=== PATIENT | male | born 1995 | race Caucasian/White ===

== ENCOUNTER 2017-03-09 08:21 | Emergency (ER) | payer BC, OTHER ==
[2017-03-09 08:31] VITALS: BP 136/66; PULSE 76; TEMP 98; BMI 25.7
[2017-03-09] MEDS ORDERED: ACETAMINOPHEN 500 MG TABLET (FP) PO ONE (08:52)
[2017-03-09] MEDS ORDERED: ACETAMINOPHEN 500 MG TABLET (FP) ONE (09:02)
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
[2017-03-09 09:20] LABS: URINE APPEARANCE CLEAR; URINE BILIRUBIN NEGATIVE (NEGATIVE); URINE BLOOD NEGATIVE (NEGATIVE); URINE COLOR LTYELLOW; URINE GLUCOSE (UA) NEGATIVE (NEGATIVE); URINE KETONE NEGATIVE (NEGATIVE); URINE LEUK ESTERASE NEGATIVE (NEGATIVE); URINE NITRITE NEGATIVE (NEGATIVE); URINE PROTEIN NEGATIVE (NEGATIVE); URINE UROBILINOGEN NEGATIVE E.U./dl (0.2-1.0)
== END 2017-03-09 09:51 | disposition home or self-care (01) ==
LOC: JERFT 08:21
DX: M54.5 Low back pain (principal); V49.49XA Driver injured in collision with other motor vehicles in traffic accident, initial encounter; Y92.410 Unspecified street and highway as the place of occurrence of the external cause; Y93.89 Activity, other specified
CPT/HCPCS: 72100-TC; 81003; 99281-25

== ENCOUNTER 2017-10-02 18:57 | Emergency (ER) | payer BC, OTHER ==
--- NOTE | 2017-10-02 19:17 | PDOC ---
Rapid Medical Evaluation Time Seen by Provider: 10/02/17 19:14 Medical Evaluation: Allergies Allergy/AdvReac Type Severity Reaction Status Date / Time Penicillins Allergy Swelling Verified 03/09/17 08:43 10/02/17 19:15 I have performed a brief in-person evaluation of this patient. The patient presents with a chief complaint of: rt foot injury while playing basketball Pertinent physical exam findings: tender to dorsal aspect of 3rd mTP I have ordered the following: foot xray The patient will proceed to the ED for further evaluation.
[2017-10-02 19:18] VITALS: BP 120/74; PULSE 89; TEMP 98.7; BMI 23.3
--- NOTE | 2017-10-02 20:50 | PDOC ---
History of Present Illness - General Chief Complaint: Injury Stated Complaint: INJURY Time Seen by Provider: 10/02/17 19:14 History Source: Patient Exam Limitations: No Limitations - History of Present Illness Initial Comments: 10/02/17 20:49 22 yr male with pain to the top of his right foot after twisting it playing basketball today. 10/02/17 20:56 Past History - Past Medical History Allergies/Adverse Reactions: Allergies Allergy/AdvReac Type Severity Reaction Status Date / Time Penicillins Allergy Swelling Verified 03/09/17 08:43 Home Medications: Ambulatory Orders NK [No Known Home Medication] 10/02/17 COPD: No - Surgical History Appendectomy: Yes - Suicide/Smoking/Psychosocial Hx Smoking History: Never smoked Have you smoked in the past 12 months: No Number of Cigarettes Smoked Daily: 1 Hx Alcohol Use: Yes Drug/Substance Use Hx: No Substance Use Type: None *Physical Exam - Vital Signs Last Vital Signs Temp Pulse Resp BP Pulse Ox 98.7 F 89 17 120/74 98 10/02/17 19:16 10/02/17 19:16 10/02/17 19:16 10/02/17 19:16 10/02/17 19:16 - Physical Exam General Appearance: Yes: Nourished, Appropriately Dressed HEENT: positive: EOMI, TAISHA Neck: positive: Supple Respiratory/Chest: positive: Lungs Clear, Normal Breath Sounds Extremity: positive: Normal Capillary Refill, Normal Range of Motion, Tender, Swelling (right foot dorsal surface ) Integumentary: positive: Normal Color, Dry, Warm Neurologic: positive: Fully Oriented, Alert, Normal Mood/Affect, Normal Response , Motor Strength 5/5 *DC/Admit/Observation/Transfer Diagnosis at time of Disposition: Contusion of foot Qualifiers: Encounter type: initial encounter Laterality: right Qualified Code(s): S90.31XA - Contusion of right foot, initial encounter - Discharge Dispostion Disposition: HOME Condition at time of disposition: Good - Referrals Referrals: Sourav Elena MD [Staff Physician] - - Patient Instructions Additional Instructions: follow up with the orthopedist listed below take motrin for pain (over the counter as directed) apply ice every 2hrs for 20 minutes - Post Discharge Activity
== END 2017-10-02 21:04 | disposition home or self-care (01) ==
LOC: JERFT 18:57
DX: S90.31XA Contusion of right foot, initial encounter (principal); X50.1XXA Overexertion from prolonged static or awkward postures, initial encounter; Y93.67 Activity, basketball; Y92.310 Basketball court as the place of occurrence of the external cause; Y99.8 Other external cause status
CPT/HCPCS: 73630-TC-RT; 99281-25

== ENCOUNTER 2022-08-02 22:19 | Emergency (ER) | payer SELFPAY ==
[2022-08-02 22:28] VITALS: BP 121/75; PULSE 81; RESP 19; TEMP 98.7; BMI 22.6
== END 2022-08-03 00:22 | disposition home or self-care (01) ==
LOC: JER 22:19
DX: Z48.02 Encounter for removal of sutures (principal)
CPT/HCPCS: 99281-25

== ENCOUNTER 2023-08-31 19:36 | Emergency (ER) | payer SELFPAY ==
[2023-08-31 20:02] VITALS: BP 110/69; PULSE 98; RESP 18; TEMP 99.6; BMI 22.7
[2023-08-31] MEDS ORDERED: FAMOTIDINE 20 MG/50 ML IVPB 20 MG/50 ML MG IVPB ONE ×3 (20:41→20:54)
[2023-08-31] MEDS ORDERED: ACETAMINOPHEN 1000 MG/100 ML BAG IVPB ONE (20:41)
[2023-08-31] MEDS ORDERED: SODIUM CHLORIDE 0.9% 500 ML INFUS.BAG IV ONE (20:41)
[2023-08-31] MEDS ORDERED: ACETAMINOPHEN INJECTION 100 ML IVPB ONE ×2 (20:49→20:54)
[2023-08-31] MEDS ORDERED: ONDANSETRON 4 MG/2 ML VIAL ONE (20:50)
[2023-08-31] MEDS ORDERED: ONDANSETRON *ODT* 4 MG TABLET SL ONE (20:54)
[2023-08-31 21:05] LABS: BASO % 0.1 % (0-2.0); HEMATOCRIT 42.8 % (35.4-49); HEMOGLOBIN 14.5 GM/dL (11.7-16.9); LYMPH % 6.2 % (8-40); MCH 28.7 pg (25.7-33.7); MEAN CELL VOLUME 84.6 fl (80-96); MEAN PLT VOLUME 8.4 fl (7.5-11.1); MONO % 4.2 % (3.8-10.2); NEUT % 89.5 % (42.8-82.8); PLATELET COUNT 228 10^3/uL (134-434); RBC 5.06 M/mm3 (4.00-5.60); RDW 12.7 % (11.9-15.9); WHITE BLOOD COUNT 7.3 K/mm3 (4.0-10.0)
[2023-08-31 21:21] LABS: POTASSIUM 4.1 mmol/L (3.5-5.1)
[2023-08-31 21:24] LABS: ALBUMIN 4.2 g/dl (3.4-5.0); BLOOD UREA NITROGEN 10.9 mg/dL (7-18); CALCIUM 8.9 mg/dL (8.5-10.1); MAGNESIUM 1.6 mg/dL (1.8-2.4)
[2023-08-31 21:28] LABS: BILIRUBIN,TOTAL 0.6 mg/dL (0.2-1); CREATININE 1.2 mg/dL (0.55-1.3); TOT PROT 7.9 g/dl (6.4-8.2)
[2023-08-31] MEDS ORDERED: MAGNESIUM SULF 50% (8.12 MEQ/2 ML-1 GM VIAL) IVPB ONE (21:42)
[2023-08-31] MEDS ORDERED: MAGNESIUM 1GM/D5W - 1 GM/100 ML IVPB IVPB ONE (21:49)
== END 2023-08-31 22:34 | disposition home or self-care (01) ==
LOC: JER 19:36
PROC: 3E033GC Introduction of Other Therapeutic Substance into Peripheral Vein, Percutaneous Approach (ICD-10-PCS; principal; 2023-08-31)
PROC: 3E033NZ Introduction of Analgesics, Hypnotics, Sedatives into Peripheral Vein, Percutaneous Approach (ICD-10-PCS; 2023-08-31)
PROC: 3E033GC Introduction of Other Therapeutic Substance into Peripheral Vein, Percutaneous Approach (ICD-10-PCS; 2023-08-31)
PROC: 3E033GC Introduction of Other Therapeutic Substance into Peripheral Vein, Percutaneous Approach (ICD-10-PCS; 2023-08-31)
DX: R11.2 Nausea with vomiting, unspecified (principal); R19.7 Diarrhea, unspecified; R68.83 Chills (without fever); R10.9 Unspecified abdominal pain; Z20.822 Contact with and (suspected) exposure to COVID-19
CPT/HCPCS: 0241U-QW; 36415; 80053; 83690; 83735; 85025; 99284-25; Q0162

== ENCOUNTER 2023-11-12 18:58 | Emergency (ER) | payer SELFPAY ==
[2023-11-12 19:06] VITALS: BP 112/67; PULSE 88; RESP 18; TEMP 97.4; BMI 21.9
== END 2023-11-12 20:05 | disposition home or self-care (01) ==
LOC: JERFT 18:58
DX: S86.012A Strain of left Achilles tendon, initial encounter (principal); X58.XXXA Exposure to other specified factors, initial encounter
CPT/HCPCS: 99282-25